=== PATIENT | female | born 1965 | race Hispanic/Latino ===

== ENCOUNTER 2023-09-08 14:26 | Emergency (ER) | payer SELFPAY ==
--- OUTSIDE RECORDS SUMMARY | 2023-09-08 14:29 | XMS REPORT | Continuity of Care Document ---
Author Name Unknown Address [address] [facility] [place] [address] [facility] Address [address] 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 2022-07-22 09:30:00 2022-07-22 09:30:00 Outpatient ALINA [facility] [id number] [facility]
[2023-09-08] MEDS ORDERED: NA CHLORIDE 0.9% 1,000 ML ONE (15:00)
[2023-09-08] MEDS ORDERED: KETOROLAC 30 MG/ML INJ ONE (15:00)
--- NOTE | 2023-09-08 15:23 | RAD REPORT ---
EXAM DESCRIPTION: CT - Chest Abd Pelvis Wo Con - 09/08/2023 3:06 pm CLINICAL HISTORY: Chest, back abdominal pain COMPARISON: 2008 TECHNIQUE: Computed axial tomography of the chest, abdomen and pelvis was obtained. Oral contrast wa s given. IV contrast was not requested. All CT scans are performed using dose optimization technique as appropriate and may include automated exposure control or mA/KV adjustment according to patient size. FINDINGS: The evaluation of mediastinum, alexus, vessels and solid organs is limited secondary to the lack of IV contrast administration Minimal ground-glass opacity posterior right upper lobe No mediastinal or hilar lymphadenopathy is seen. A pleural effusion is not present. A pericardial effusion is not seen. Coronary arterial calcifications The liver, spleen, pancreas, adrenals and kidneys appear grossly normal There is no evidence of diverticulitis. Normal appendix. No adnexal mass Cholecystectomy IMPRESSION: Minimal ground-glass opacity posterior right upper lobe indicative of minimal alveolitis No acute abnormality involving the abdomen/pelvis is seen
[2023-09-08 15:28] LABS: Absolute Eosinophils 0.1 K/uL (0-0.5); Absolute Lymphocytes (CBC) 1.8 K/uL (0.7-4.9); Absolute Monocytes 0.4 K/uL (0.1-1.3); Absolute Neutrophil 1.7 K/uL (1.8-8.0); Basophils % 0.9 % (0-1.3); Eosinophils % 2.5 % (0-4.4); Hematocrit 40.4 % (36.0-45.0); Hemoglobin 13.7 g/dL (12.0-15.0); MCH 28.9 pg (27.0-35.0); MCHC 33.9 g/dL (32.0-36.0); MCV 85.5 fL (80-100); MPV 8.5 fL (7.6-11.3); Monocytes % 9.5 % (3.3-12.3); Neutrophils % 42.1 % (41.7-73.7); Nucleated Red Blood Cells % 0.2 % (0-0); Platelets 219 thou/uL (152-406); RBC Red Blood Cell Count 4.73 M/uL (3.86-4.86); Red Cell Distribution Width 12.8 % (12.1-15.2); Specific Gravity < 1.005 (1.005-1.030); Urine Bilirubin NEGATIVE (Negative); Urine Blood Negative (Negative); Urine Clarity Clear (Clear); Urine Color Colorless (Yellow); Urine Glucose NEGATIVE (Negative); Urine Ketones NEGATIVE (Negative); Urine Microscopic Reflex YN NO UMIC; Urine Nitrite NEGATIVE (Negative); Urine Protein NEGATIVE (Negative); Urine Urobilinogen Normal (Normal)
[2023-09-08 15:52] LABS: Albumin 3.6 g/dL (3.4-5.0); Albumin/Globulin Ratio 0.9 (1.1-1.8); Anion Gap 5.4 mEq/L (5.0-15.0); Bilirubin Total 0.3 mg/dL (0.2-1.0); Globulin 4.1 g/dL (2.3-3.5); Potassium 3.4 mEq/L (3.5-5.1); Protein, Total 7.7 g/dL (6.4-8.2); Troponin High Sensitivity 4.6 pg/mL (<58.9)
[2023-09-08 15:57] LABS: SARS-CoV-2 Antigen CONTROL BLUE LINE VIS/BG OK; SARS-CoV-2 Antigen Rapid Res Negative (Negative)
--- NOTE | 2023-09-08 16:37 | EDPHYS ---
Physician Documentation [facility] Name: Kiana Lester Age: 58 yrs Sex: Female : 1965 Arrival Date: 09/08/2023 Time: 14:26 Bed 20 Private MD: ED Physician Nathan Peralta HPI: 09/07 16:25 This 58 yrs old Female presents to ER via Ambulatory with complaints of Back sp3 Pain, Diarrhea. 16:25 58-year-old female with history of hypertension, hyperlipidemia presents to the ED with sp3 chief complaint mid to right-sided back pain, cough, body aches. Symptoms started 2 to 3 days ago. She denies fever, headache, neck pain, shortness of breath, chest pain, abdominal pain, vomiting, diarrhea, rash, known sick contacts, travel history, prolonged immobilization, prior DVT or PE, or any other signs or symptoms on ROS at this time.. Historical: - Allergies: 14:41 No Known Allergies; as6 - PMHx: 14:41 Hypertensive disorder; Hypercholesterolemia; as6 - PSHx: 14:41 Cholecystectomy; section; as6 - Immunization history:: Adult Immunizations up to date. - Infectious Disease History:: Denies. - Social history:: Smoking status: Patient denies any tobacco usage or history of. ROS: 16:29 Constitutional: Negative for fever, chills, and weight loss, Eyes: Negative for injury, sp3 pain, redness, and discharge, ENT: Negative for injury, pain, and discharge, Neck: Negative for injury, pain, and swelling, Cardiovascular: Negative for chest pain, palpitations, and edema, Abdomen/GI: Negative for abdominal pain, nausea, vomiting, diarrhea, and constipation, Back: Negative for injury and pain, Skin: Negative for injury, rash, and discoloration, Neuro: Negative for headache, weakness, numbness, tingling, and seizure, Psych: Negative for depression, anxiety, suicide ideation, homicidal ideation, and hallucinations, Allergy/Immunology: Negative for hives, rash, and allergies, Endocrine: Negative for neck swelling, polydipsia, polyuria, polyphagia, and marked weight changes, 16:29 All other systems are negative, Exam: 16:33 Constitutional: This is a well developed, well nourished patient who is awake, alert, sp3 and in no acute distress. Head/Face: Normocephalic, atraumatic. Eyes: Pupils equal round and reactive to light, extra-ocular motions intact. Lids and lashes normal. Conjunctiva and sclera are non-icteric and not injected. Cornea within normal limits. Periorbital areas with no swelling, redness, or edema. ENT: Nares patent. No nasal discharge, no septal abnormalities noted. External auditory canals are clear. Oropharynx with no redness, swelling, or masses, exudates, or evidence of obstruction, uvula midline. Mucous membranes moist. Neck: Trachea midline, no thyromegaly or masses palpated, and no cervical lymphadenopathy. Supple, full range of motion without nuchal rigidity, or vertebral point tenderness. No Meningismus. Chest/axilla: Normal chest wall appearance and motion. Nontender with no deformity. No lesions are appreciated. Cardiovascular: Regular rate and rhythm with a normal S1 and S2. No gallops, murmurs, or rubs. Normal PMI, no JVD. No pulse deficits. Abdomen/GI: Soft, non-tender, with normal bowel sounds. No distension or tympany. No guarding or rebound. No evidence of tenderness throughout. Skin: Warm, dry with normal turgor. Normal color with no rashes, no lesions, and no evidence of cellulitis. MS/ Extremity: Pulses equal, no cyanosis. Neurovascular intact. Full, normal range of motion. Neuro: Awake and alert, GCS 15, oriented to person, place, time, and situation. Cranial nerves II-XII grossly intact. Motor strength 5/5 in all extremities. Sensory grossly intact. Cerebellar exam normal. Normal gait. Psych: Awake, alert, with orientation to person, place and time. Behavior, mood, and affect are within normal limits. 16:33 Respiratory: Active cough, 16:33 Back: Patient has muscular pain mid back at spine and to the right., Vital Signs: 14:40 BP 150 / 82; Pulse 55; Resp 16 S; Temp 97.8(TE); Pulse Ox 100% on R/A; Weight 60.78 kg as6 (R); Height 5 ft. 4 in. (R); Pain 8/10; 15:43 BP 138 / 72; Pulse 46; Resp 16 S; Pulse Ox 99% on R/A; kc6 16:25 BP 149 / 79; Pulse 47; Resp 16 S; Pulse Ox 100% on R/A; kc6 14:40 Body Mass Index 23.00 (60.78 kg, 162.56 cm) as6 14:40 Pain Scale: Adult as6 MDM: 14:50 Patient medically screened. 3 16:33 Data reviewed: vital signs, nurses notes, lab test result(s), EKG, radiologic studies. sp3 ED course: 58-year-old female with mid back pain, cough and bodyaches. Consider viral illness, pneumonia, bronchitis, COVID-19, influenza, pathology including UTI/pyelonephritis spectrum, kidney stone, or other intra-abdominal pathology. Workup is broad and will include CT scan of the chest abdomen and pelvis, laboratory values, UA and swabs. CT demonstrates pneumonia in the right lung with no other abnormality. Swabs are all negative and laboratory values are within normal limits. Patient is improved. We will safely discharge her home on p.o. antibiotic and NSAID with follow-up to PCP.. 09/07 14:55 Order name: CBC with Diff; Complete Time: 16:16 sp3 09/07 14:55 Order name: CMP; Complete Time: 16:16 sp3 09/07 14:55 Order name: Lipase; Complete Time: 16:16 sp3 09/07 14:55 Order name: Urinalysis w/ reflexes; Complete Time: 16:16 sp3 09/07 14:55 Order name: Troponin High Sensitivity; Complete Time: 16:16 sp3 09/07 14:55 Order name: Flu; Complete Time: 16:16 sp3 09/07 14:55 Order name: SARS RAPID; Complete Time: 16:16 sp3 09/07 14:55 Order name: CT Abd/Pelvis - Without Contrast sp3 09/07 14:55 Order name: CT Chest Wo Con sp3 09/07 14:59 Order name: Chest Abd Pelvis Wo Con; Complete Time: 16:16 EDMS 09/07 14:55 Order name: EKG; Complete Time: 14:56 sp3 09/07 14:55 Order name: IV Saline Lock; Complete Time: 15:21 sp3 09/07 14:55 Order name: Labs collected and sent; Complete Time: 15:22 sp3 09/07 14:55 Order name: EKG - Nurse/Tech; Complete Time: 15:21 sp3 Administered Medications: 15:22 Drug: NS 0.9% IV 1000 ml IV at 1 bolus Per protocol; 1000 mL bolus Route: IV; Rate: 1 kc6 bolus; Site: right antecubital; 17:00 Follow up: Response: No adverse reaction; IV Status: Completed infusion; IV Intake: kc6 1000ml 15:22 Drug: TORadol - Ketorolac IVP 15 mg IVP once Route: IVP; Site: right antecubital; kc6 17:00 Follow up: Response: No adverse reaction; Pain is decreased kc6 Disposition Summary: 09/08/23 16:36 Discharge Ordered Notes: Location: Home sp3 Condition: Stable sp3 Diagnosis - Pneumonia sp3 Followup: sp3 - With: Private Physician - When: Upon discharge from the Emergency Department - Reason: Continuance of care Discharge Instructions: - Discharge Summary Sheet sp3 - Community-Acquired Pneumonia, Adult sp3 Forms: - Medication Reconciliation Form sp3 - Antibiotic Education sp3 - Prescription Opioid Use sp3 - Patient Portal Instructions sp3 - Leadership Thank You Letter sp3 Prescriptions: - Diclofenac Sodium 75 mg Oral Tablet Sustained Release - take 1 tablet ORAL route 2 times per day; 30 tablet; Refills: 0, Product sp3 Selection Permitted - levofloxacin 500 mg Oral tablet - take 1 tablet ORAL route once daily for 7 days; 7 tablet; Refills: 0, Product sp3 Selection Permitted Signatures: Dispatcher [employer] Nathan Chavira MD MD sp3 Francesco Murcia RN RN as6 Beti Jay RN RN kc6
--- NOTE | 2023-09-08 16:37 | ER ---
Nurse's Notes [facility] Name: Kiana Lester Age: 58 yrs Sex: Female : 1965 Arrival Date: 09/08/2023 Time: 14:26 Bed 20 Private MD: Diagnosis: Pneumonia Presentation: 09/07 14:40 Chief complaint: Patient's son or daughter states: weakness, diarrhea and not feeling as6 well x1 week. Coronavirus screen: At this time, the client does not indicate any symptoms associated with coronavirus-19. Ebola Screen: No symptoms or risks identified at this time. Initial Sepsis Screen: Does the patient meet any 2 criteria? No. Patient's initial sepsis screen is negative. Does the patient have a suspected source of infection? No. Patient's initial sepsis screen is negative. Risk Assessment: Do you want to hurt yourself or someone else? Patient reports no desire to harm self or others. Onset of symptoms was September 01, 2023. 14:40 Method Of Arrival: Ambulatory as6 14:40 Acuity: TUNG 3 as6 Historical: - Allergies: 14:41 No Known Allergies; as6 - PMHx: 14:41 Hypertensive disorder; Hypercholesterolemia; as6 - PSHx: 14:41 Cholecystectomy; section; as6 - Immunization history:: Adult Immunizations up to date. - Infectious Disease History:: Denies. - Social history:: Smoking status: Patient denies any tobacco usage or history of. Screenin:42 [facility] ED Fall Risk Assessment (Adult) History of falling in the last 3 months, kc6 including since admission No falls in past 3 months (0 pts) Confusion or Disorientation No (0 pts) Intoxicated or Sedated No (0 pts) Impaired Gait No (0 pts) Mobility Assist Device Used No (0 pt) Altered Elimination No (0 pt) Score/Fall Risk Level 0 - 2 = Low Risk. Abuse screen: Denies threats or abuse. Denies injuries from another. Nutritional screening: No deficits noted. Tuberculosis screening: No symptoms or risk factors identified. Assessment: 14:45 General: Appears in no apparent distress. comfortable, well groomed, well developed, kc6 Behavior is calm, cooperative, appropriate for age, Reports feeling ill for fatigue for. Pain: Complains of pain in back. Neuro: Level of Consciousness is awake, alert, obeys commands, Oriented to person, place, time, situation, Appropriate for age Reports weakness. Cardiovascular: Capillary refill < 3 seconds. Respiratory: Airway is patent Trachea midline Respiratory effort is even, unlabored, Respiratory pattern is regular, symmetrical. GI: Reports diarrhea, Patient currently denies abdominal pain, nausea, vomiting. : No signs and/or symptoms were reported regarding the genitourinary system. Urine is clear. EENT: No signs and/or symptoms were reported regarding the EENT system. Derm: No signs and/or symptoms reported regarding the dermatologic system. Skin is intact, is healthy with good turgor, Skin is pink, warm \T\ dry. Musculoskeletal: No signs and/or symptoms reported regarding the musculoskeletal system. Circulation, motion, and sensation intact. Capillary refill < 3 seconds, Range of motion: intact in all extremities. 15:44 Reassessment: Patient appears in no apparent distress at this time. No changes from kc6 previously documented assessment. Patient and/or family updated on plan of care and expected duration. Pain level reassessed. Patient is alert, oriented x 3, equal unlabored respirations, skin warm/dry/pink. 16:25 Reassessment: Patient appears in no apparent distress at this time. No changes from kc6 previously documented assessment. Patient and/or family updated on plan of care and expected duration. Pain level reassessed. Patient is alert, oriented x 3, equal unlabored respirations, skin warm/dry/pink. Vital Signs: 14:40 BP 150 / 82; Pulse 55; Resp 16 S; Temp 97.8(TE); Pulse Ox 100% on R/A; Weight 60.78 kg as6 (R); Height 5 ft. 4 in. (R); Pain 8/10; 15:43 BP 138 / 72; Pulse 46; Resp 16 S; Pulse Ox 99% on R/A; kc6 16:25 BP 149 / 79; Pulse 47; Resp 16 S; Pulse Ox 100% on R/A; kc6 14:40 Body Mass Index 23.00 (60.78 kg, 162.56 cm) as6 14:40 Pain Scale: Adult as6 ED Course: 14:30 Patient arrived in ED. mg5 14:31 Nathan Peralta MD is Attending Physician. sp3 14:41 Triage completed. as6 14:42 Arm band placed on. as6 14:50 Beti Jay, RN is Primary Nurse. kc6 15:07 Chest Abd Pelvis Wo Con In Process Unspecified. EDMS 15:22 Inserted saline lock: 20 gauge in right antecubital area, using aseptic technique. kc6 Blood collected. 15:42 Patient has correct armband on for positive identification. Bed in low position. Call kc6 light in reach. Side rails up X 1. Client placed on continuous cardiac and pulse oximetry monitoring. NIBP monitoring applied. Door closed. Noise minimized. Visitors limited. Lights dimmed. Warm blanket given. Pillow given. 17:00 No provider procedures requiring assistance completed. IV discontinued, intact, kc6 bleeding controlled, No redness/swelling at site. Pressure dressing applied. Administered Medications: 15:22 Drug: NS 0.9% IV 1000 ml IV at 1 bolus Per protocol; 1000 mL bolus Route: IV; Rate: 1 kc6 bolus; Site: right antecubital; 17:00 Follow up: Response: No adverse reaction; IV Status: Completed infusion; IV Intake: kc6 1000ml 15:22 Drug: TORadol - Ketorolac IVP 15 mg IVP once Route: IVP; Site: right antecubital; kc6 17:00 Follow up: Response: No adverse reaction; Pain is decreased kc6 Medication: 17:01 VIS not applicable for this client. kc6 Intake: 17:00 IV: 1000ml; Total: 1000ml. kc6 Outcome: 16:36 Discharge ordered by . sp3 17:00 Discharged to home ambulatory, with family, kc6 17:00 Condition: good 17:00 Discharge instructions given to patient, family, Instructed on discharge instructions, follow up and referral plans. medication usage, Demonstrated understanding of instructions, follow-up care, medications, Prescriptions given X 2, 17:01 Patient left the ED. kc6 Signatures: Dispatcher [employer] EDNathan Dyer MD MD sp3 Francesco Murcia RN RN Beti Dominguez, RN RN kc6 Donavan [place] mg5
[2023-09-08 17:12] VITALS: BP 149/79; TEMP 97.8; O2SAT 100
== END 2023-09-08 17:01 | disposition home or self-care (01) ==
LOC: ER 14:26
DX: J18.9 Pneumonia, unspecified organism (principal); Z11.52 Encounter for screening for COVID-19
CPT/HCPCS: 36415; 71250; 74176; 80053; 81003; 83690; 84484; 85025; 87804; 87811; 93005; J7030